=== PATIENT | male | born 1985 | race Two or more races ===

== ENCOUNTER 2024-08-30 10:04 | Emergency (ER) | payer MEDICAID, SELFPAY ==
[2024-08-30 10:05] VITALS: BMI 23.7
[2024-08-30 10:22] VITALS: BP 136/87; PULSE 70; RESP 16; TEMP 37; O2SAT 97; BMI 24.5
--- NOTE | 2024-08-30 11:18 | EDNOTE_ITS ---
ED Wound/Laceration-RME/HPI General Chief Complaint: Wound/Laceration Stated Complaint: LACERATION ABOVE RT EYE Time Seen by Provider: 08/30/24 10:32 Arrival date/time: 08/30/24 10:04 38-year-old male presents the emergency department complaint of laceration right eyebrow region. Patient reports that he accidentally had a trip and fall as he is using crutches and was unsteady with him Limitations: no limitations Related Data Allergies Allergy/AdvReac Type Severity Reaction Status Date / Time No Known Allergies Allergy Verified 08/30/24 10:07 Review of Systems Review of Systems Systems Reviewed: All systems reviewed, normal except as documented Constitutional Constitutional: Reports system reviewed and no additional complaints, except as documented, Denies fever(s) and Denies headache(s) Eyes Eyes: Reports system reviewed and no additional complaints, except as documented and Denies blurry vision ENT Ears, Nose, Mouth, and Throat: Reports system reviewed and no additional complaints, except as documented, Denies headache(s), Denies nasal congestion and Denies nasal discharge Cardiovascular Cardiovascular: Reports system reviewed and no additional complaints, except as documented, Denies chest pain and Denies dyspnea Respiratory Respiratory: Reports system reviewed and no additional complaints, except as documented, Denies chest congestion, Denies cough and Denies dyspnea Gastrointestinal Gastrointestinal: Reports system reviewed and no additional complaints, except as documented and Denies abdominal pain Integumentary/Breasts Skin/Breast: Reports system reviewed and no additional complaints, except as documented, Denies rash and Reports wounds (Laceration facial) Neurologic Neurologic: Reports system reviewed and no additional complaints, except as documented, Reports as per HPI and Denies headache(s) Past Medical History Past Medical History CARDIAC: Negative Congestive Heart Failure RESPIRATORY: Negative Chronic Obstructive Pulmonary Disease (COPD) GENITOURINARY: Negative Renal Disease ENDOCRINE: Negative Diabetes Mellitus Type 1 or Diabetes Mellitus Type 2 Social History SMOKING STATUS: Never smoker ED Exam General Limitations: Present no limitations General appearance: Present alert and in no apparent distress Expanded Head Exam Head image: 2 1. Laceration right eyebrow Eye Eye exam: Present normal appearance, PERRL and EOMI ENT ENT exam: Present normal exam, normal oropharynx and mucous membranes moist Neck Neck exam: Present normal inspection, full ROM and trachea midline Chest Chest inspection: Present normal inspection and symmetric chest wall rise Respiratory Respiratory exam: Present normal lung sounds bilaterally Cardiovascular Cardiovascular exam: Present regular rate, normal rhythm and normal heart sounds Abdominal Exam Abdominal exam: Present soft and normal bowel sounds Extremities Exam Extremities exam: Present normal inspection and full ROM Back Exam Back exam: Present normal inspection and full ROM Neurological Exam Neurological exam: Present alert, oriented X3, CN II-XII intact, normal gait and reflexes normal; Absent motor sensory deficit Psychiatric Psychiatric exam: Present normal affect and normal mood Skin Skin exam: Present warm, dry and other (Laceration right eyebrow) Course Quality Measures none Orders Category Date Time Status Set Up Suture Tray STAT Care 08/30/24 10:40 Completed Wound Care NOW Care 08/30/24 10:40 Completed Lidocaine 1% 20 ml [Xylocaine 1% 20 ML] Med 08/30/24 10:40 Discontinued 20 ml INFL X1 ONE Tet,Diphth,Pertuss(Acell)-Tdap [Boostrix Vacc] Med 08/30/24 10:40 Discontinued 0.5 ml IMI .ONCE ONE Vital Signs Vital signs: Vital Signs Temperature 98.6 F 08/30/24 10:22 Pulse Rate 70 08/30/24 10:22 Respiratory Rate 16 08/30/24 10:22 Blood Pressure 136/87 H 08/30/24 10:22 Pulse Oximetry (%) 97 08/30/24 10:22 Oxygen Delivery Method Room Air 08/30/24 10:22 O2 saturation 97% room air within normal limits Procedures -ED Laceration Laceration 1: Site: face Side (If applicable): right Size (cm): 4 Description: linear Depth: simple, single layer Local Anesthetic: lidocaine 1% Amount of anesthesia used (mL): 5 Pre-repair: wound explored and irrigated extensively Skin layer closed with: other (Prolene) Size (cm): 4-0 Number of sutures: 5 Technique: simple, interrupted Wound / Laceration MDM Narrative MDM Narrative:: 38-year-old male presents the emergency department complaint of laceration right eyebrow region. Patient reports that he accidentally had a trip and fall as he is using crutches and was unsteady with him On exam patient is approximately 4 cm laceration above the right eye Wound irrigated copiously laceration pair with 5 sutures wound is well- approximated no active bleeding time of discharge There is no eye involvement Patient reports no disturbances in vision no entrapment Patient reports no headache no dizziness no weakness Patient discharged home in no distress to follow-up with primary care doctor in the next 24 to 48 hours and for any worsening symptoms to return to the ER immediately Patient data External records reviewed:: [facility] previous records Clinical information provided by:: patient Social determinants that could affect healthcare access:: none Patient has the following chronic illnesses:: None How is presenting disease/condition affected by chronic disease/condition?: no chronic disease Evaluation data The following diagnostics were reviewed and interpreted by me:: other (specify) (N/A) Lab and/or radiology exams considered but not ordered:: Consider not ordered Interpretation Summary: N/A Medications / Prescriptions Medications or Prescriptions considered but not ordered:: Given Medication administrations:: Medication Administration History Discontinued Medications Diphtheria/Tetanus/Acell Pertussis (Diphth,Pertuss(Acell),Tet Vac 0.5 Ml Vial) 0.5 ml IMi .ONCE ONE Stop: 08/30/24 10:41 Last Admin: 08/30/24 11:29 Dose: 0.5 ml Documented By: CANELO Lidocaine HCl (Lidocaine Hcl 1% 20 Ml Vial) 20 ml INFL X1 ONE Stop: 08/30/24 10:41 Last Admin: 08/30/24 11:32 Dose: 20 ml Documented By: MP Given Consultations Consultation(s) initiated? (list below): No Diagnosis Wound Differential Diagnosis: laceration, abrasion and avulsion of skin Most likely diagnosis given after review of the tests above:: Laceration Admission Indicated Admission indicated?: not indicated Admission Request Was there a request for admission?: No Disposition Plan Disposition Plan: Discharge Discharge Attestation Discharge Attestation: The patient and all family members were given an opportunity to ask questions and understood the discharge instructions. Discharge instructions specifically effects, indications for sooner follow up or return to the emergency department, and the expected course of current diagnosis. Patient condition: Stable Discharge Plan Plan Patient Disposition: HOME (Self Care) Disposition Comment: Stable Problem List Clinical Impression: Laceration Patient/Caregiver Discharge Instructions Additional Instructions: Please follow up with your primary care doctor in the next 24-48hrs for any worsening symptoms return here immediately Please have sutures removed in 7 days Print Language: Mauritanian Stand Alone Forms: Aleena Award Info., Patient Portal Info Letter Vaccines Vaccines Given During Stay: TDaP PA/MARTINA Supervising Physician SUKUMAR/MARTINA Supervising Physician: Dr. gonzalez
[2024-08-30] MEDS: DIPHTH,PERTUSS(ACELL),TET VAC 0.5 ML VIAL IMi (11:29)
[2024-08-30] MEDS: LIDOCAINE HCL 1% 20 ML VIAL INFL (11:32)
== END 2024-08-30 11:56 | disposition home or self-care (01) ==
LOC: SERX 11:29
PROVIDERS: Emergency Provider Emergency Medicine; PCP Family Medicine
DX: S01.111A Laceration without foreign body of right eyelid and periocular area, initial encounter (principal); W01.0XXA Fall on same level from slipping, tripping and stumbling without subsequent striking against object, initial encounter; Z23 Encounter for immunization
CPT/HCPCS: 12013; 90471; 90715; 99283; J3490